=== PATIENT | female | born 2000 | race African-American/Black ===

== ENCOUNTER 2024-10-20 18:05 | Emergency (ER) | payer OTHER ==
[~2024-10-20] VITALS: Ht 170.2 cm; Wt 100.0 kg
[2024-10-20 18:10] VITALS: O2SAT 98
[2024-10-20] MEDS: KETOROLAC 30MG/ML VIAL IM ONE (20:45)
[2024-10-20] MEDS: CYCLOBENZAPRINE 10MG TABLET PO ONE (20:45)
[2024-10-20 21:15] VITALS: BP 121/74; PULSE 74; RESP 16; TEMP 36.7; O2SAT 99
[2024-10-20] MEDS ORDERED: CYCL10TA21 MT (21:37)
[2024-10-20] MEDS ORDERED: NAPR-1176 MT (21:37)
== END 2024-10-20 22:15 | disposition home or self-care (01) ==
LOC: ER 18:05
DX: M54.50 Low back pain, unspecified (principal); Z98.890 Other specified postprocedural states; X50.0XXA Overexertion from strenuous movement or load, initial encounter; Y93.89 Activity, other specified; Y92.39 Other specified sports and athletic area as the place of occurrence of the external cause; Y99.8 Other external cause status
CPT/HCPCS: 99283; 81025; 72100; 96372; J1885